=== PATIENT | female | born 1925 | race Caucasian/White ===

== ENCOUNTER 2016-03-08 18:44 | Emergency (ER) | payer MEDICARE ==
[~2016-03-08] VITALS: Ht 154.9 cm; Wt 47.3 kg
[~2016-03-08 18:44] MED LIST: ANTI-GAS ULTRA180 MG PO; ASPIRIN E.C. 8181 MG PO; CALTRATE 600 +1 TAB PO; HYZAAR 25 MG-101 TAB PO; IMODIUM 2MG CAPS2 MG PO; LORTAB 5/500 501 TAB; MEGA RED; MELAT3MGTAB PO; MELATONIN; NEURONTIN300 MG/CAP PO; NORCO 325 MG-51 TAB PO; NORMODYNE100 MG PO; NORVASC 10MG10 MG PO; OMEGA 31000 MG PO; OXYCONTIN 10MG10 MG PO; PERCOCET 325 MG1 TA2 PO; RESTORIL 1515 MG/CAP PEG; RESTORIL 1515 MG/CAP PO; SLEEPING PILL; TRANDATE 100MG100 MG PO; VALIUM 5MG T5 MG/TAB PO; [UNRECOGNIZED DRUG - OTHER]; [UNRECOGNIZED DRUG - OTHER] PO
[2016-03-08 18:49] VITALS: TEMP 97.5
[2016-03-08] MEDS ORDERED: CEPHALEXIN500 M1 PO (20:35)
[2016-03-08 21:12] VITALS: BP 180/88; PULSE 84
== END 2016-03-08 21:12 | disposition home or self-care (01) ==
LOC: COL.ER 18:44
DX: S81.812A Laceration without foreign body, left lower leg, initial encounter (principal); Z23 Encounter for immunization; W22.03XA Walked into furniture, initial encounter; Y92.009 Unspecified place in unspecified non-institutional (private) residence as the place of occurrence of the external cause; I10 Essential (primary) hypertension

== ENCOUNTER 2016-03-26 18:51 | Emergency (ER) | payer MEDICARE ==
[~2016-03-26] VITALS: Ht 152.4 cm; Wt 47.3 kg
[~2016-03-26 18:51] MED LIST changes: +CEPHALEXIN500 M1 PO
[2016-03-26 19:03] VITALS: TEMP 98
[2016-03-26] MEDS ORDERED: LIDODERM 5% PATC1 EA TP (21:49)
[2016-03-26] MEDS ORDERED: VALTREX1 GM PO (21:57)
[2016-03-26 23:29] LABS: BASO # 0.1 (0.0-0.2); EOS # 0.5 (0.0-0.7); EOS % 5.4 % (0-4.0); GRAN # 4.1 (1.4-6.5); HEMATOCRIT 37.9 % (37.0-47.0); HEMOGLOBIN 12.7 g/dl (12.5-16.0); LYMPH # 2.8 (1.2-3.4); LYMPH % 34.1 % (20.0-51.0); MEAN CELL VOLUME 93 fl (80.0-100.0); MEAN CORPUSCULAR HEMOGLOBIN 31 pg (27.0-31.0); MEAN CORPUSCULAR HGB CONC 34 g/dl (33.0-37.0); MEAN PLATELET VOLUME 10.8 fl (7.4-10.4); MONO # 0.9 (0.1-0.6); MONO % 10.4 % (1.7-9.3); PLATELET COUNT 179 K/mm3 (130-400); RED BLOOD COUNT 4.08 M/mm3 (4.10-5.30); REDCELL DISTRIBUTION WIDTH-CV 12.9 % (11.5-14.5); WHITE BLOOD COUNT 8.3 K/mm3 (4.8-10.8)
[2016-03-26 23:39] LABS: ADJUSTED CALCIUM 9.5 mg/dL (8.4-10.2); ALANINE AMINOTRANSFERASE 39 U/L (9-52); ALBUMIN 4.2 gm/dL (3.5-5.0); ALKALINE PHOSPHATASE 62 U/L (50-136); ANION GAP 11 mmol/L (7-16); BILIRUBIN,TOTAL 0.7 mg/dL (0.0-1.0); BLOOD UREA NITROGEN 29 mg/dL (7-17); CALCIUM 9.7 mg/dL (8.4-10.2); CARBON DIOXIDE 31 mmol/L (22-30); CHLORIDE 100 mmol/L (98-107); CREATININE, serum 0.92 mg/dL (0.52-1.25); GLUCOSE 106 mg/dL (74-106); LIPASE 179 U/L (23-300); POTASSIUM 4.3 mmol/L (3.4-5.0); SODIUM 142 mmol/L (137-145); TOTAL PROTEIN 7.1 gm/dL (6.4-8.2)
[2016-03-26 23:51] LABS: B-TYPE NATRIURETIC PEPTIDE 1300 pg/mL (0-450)
[2016-03-26 23:58] LABS: TROPONIN-I < 0.012 ng/mL (0.000-0.034)
[2016-03-27 02:12] VITALS: BP 162/62; PULSE 66
== END 2016-03-27 02:14 | disposition home or self-care (01) ==
LOC: COL.ER 18:51
PROVIDERS: Emergency Medicine
DX: R07.89 Other chest pain (principal); I10 Essential (primary) hypertension; I44.7 Left bundle-branch block, unspecified
CPT/HCPCS: J2270; J2405; Q9967

== ENCOUNTER 2016-03-30 23:18 | Emergency (ER) | payer MEDICARE ==
[~2016-03-30] VITALS: Ht 152.4 cm; Wt 48.2 kg
[~2016-03-30 23:18] MED LIST changes: +LIDODERM 5% PATC1 EA TP; +VALTREX1 GM PO
[2016-03-30 23:21] VITALS: BP 182/76; PULSE 68; TEMP 98
== END 2016-03-31 00:19 | disposition home or self-care (01) ==
LOC: COL.ER 23:18
DX: S61.213A Laceration without foreign body of left middle finger without damage to nail, initial encounter (principal); W29.1XXA Contact with electric knife, initial encounter; Y93.G1 Activity, food preparation and clean up; Y92.000 Kitchen of unspecified non-institutional (private) residence as the place of occurrence of the external cause

== ENCOUNTER 2016-07-03 17:56 | Emergency (ER) | payer MEDICARE ==
[~2016-07-03] VITALS: Ht 152.4 cm; Wt 47.3 kg
[2016-07-03 18:28] VITALS: TEMP 98
[2016-07-03] MEDS ORDERED: NORCO 325 MG-51 TAB PO (21:15)
[2016-07-03 21:31] VITALS: BP 138/68; PULSE 62
== END 2016-07-03 21:25 | disposition home or self-care (01) ==
LOC: COL.ER 17:56
DX: S20.211A Contusion of right front wall of thorax, initial encounter (principal); I10 Essential (primary) hypertension; W01.198A Fall on same level from slipping, tripping and stumbling with subsequent striking against other object, initial encounter; Y92.002 Bathroom of unspecified non-institutional (private) residence as the place of occurrence of the external cause

== ENCOUNTER 2017-04-30 11:25 | Emergency (ER) | payer MEDICARE ==
[~2017-04-30] VITALS: Ht 152.4 cm; Wt 45.5 kg
[~2017-04-30 11:25] MED LIST changes: -OMEGA 31000 MG PO; +OMEGA-3 1000 MG1 CAP PO
[2017-04-30 11:34] VITALS: TEMP 96.8
[2017-04-30 12:12] LABS: BASO # 0.1 (0.0-0.2); BASO % 0.8 % (0.0-2.0); EOS # 0.1 (0.0-0.7); EOS % 1.2 % (0-4.0); GRAN # 5.8 (1.4-6.5); GRAN % 68.2 % (42.2-75.2); HEMATOCRIT 41.6 % (37.0-47.0); HEMOGLOBIN 13.8 g/dl (12.5-16.0); LYMPH # 1.8 (1.2-3.4); LYMPH % 20.9 % (20.0-51.0); MEAN CELL VOLUME 94 fl (80.0-100.0); MEAN CORPUSCULAR HEMOGLOBIN 31 pg (27.0-31.0); MEAN CORPUSCULAR HGB CONC 33 g/dl (33.0-37.0); MONO # 0.7 (0.1-0.6); MONO % 8.7 % (1.7-9.3); PLATELET COUNT 158 K/mm3 (130-400); RED BLOOD COUNT 4.44 M/mm3 (4.10-5.30); REDCELL DISTRIBUTION WIDTH-CV 13.1 % (11.5-14.5)
[2017-04-30 12:25] LABS: ALBUMIN 4.7 gm/dL (3.5-5.0); BILIRUBIN,TOTAL 0.4 mg/dL (0.0-1.0); CALCIUM 9.6 mg/dL (8.4-10.2); CREATININE, serum 0.83 mg/dL (0.52-1.25); POTASSIUM 4.2 mmol/L (3.4-5.0); TOTAL PROTEIN 7.6 gm/dL (6.4-8.2)
[2017-04-30] MEDS ORDERED: AMBIEN 5MG TABLE5 MG PO (12:53)
[2017-04-30] MEDS ORDERED: LOPRESSOR 550 MG/TAB PO (12:54)
[2017-04-30] MEDS ORDERED: CATAPRES 0.1MG0.1 MG PO (12:54)
[2017-04-30 13:12] LABS: COLLECTION METHOD CLEAN CATCH
[2017-04-30 13:24] LABS: MUCOUS Present /lpf; PH 7 (5-8); SQUAMOUS EPITHELIAL None Seen /hpf; URINE APPEARANCE Clear; URINE BACTERIA Rare /hpf; URINE BILIRUBIN Negative (NEGATIVE); URINE BLOOD Negative (NEGATIVE); URINE COLOR Yellow; URINE GLUCOSE Negative (NEGATIVE); URINE KETONE Negative (NEGATIVE); URINE LEUKOCYTE ESTERASE Negative (NEGATIVE); URINE NITRATE Negative (NEGATIVE); URINE PROTEIN(semi-quant) 1+ (NEGATIVE); URINE RBC 0-2 /hpf; URINE UROBILINOGEN Negative (NEGATIVE)
[2017-04-30] MEDS ORDERED: NORCO 325 MG-51 TAB PO (13:53)
[2017-04-30 14:47] VITALS: BP 176/75; PULSE 58
== END 2017-04-30 14:43 | disposition home or self-care (01) ==
LOC: COL.ER 11:25
PROVIDERS: Nurse Practitioner
DX: S20.212A Contusion of left front wall of thorax, initial encounter (principal); I10 Essential (primary) hypertension; E78.5 Hyperlipidemia, unspecified; Z79.82 Long term (current) use of aspirin; W01.198A Fall on same level from slipping, tripping and stumbling with subsequent striking against other object, initial encounter; Y92.002 Bathroom of unspecified non-institutional (private) residence as the place of occurrence of the external cause
CPT/HCPCS: A9284

== ENCOUNTER 2017-05-31 21:31 | Emergency (ER) | payer MEDICARE ==
[~2017-05-31] VITALS: Ht 152.4 cm; Wt 45.5 kg
[~2017-05-31 21:31] MED LIST changes: +AMBIEN 5MG TABLE5 MG PO; +CATAPRES 0.1MG0.1 MG PO; +LOPRESSOR 550 MG/TAB PO
[2017-05-31 21:34] VITALS: BP 195/78
[2017-06-01 00:15] VITALS: PULSE 79
== END 2017-05-31 23:41 | disposition home or self-care (01) ==
LOC: COL.ER 21:31
DX: S29.9XXA Unspecified injury of thorax, initial encounter (principal); X50.0XXA Overexertion from strenuous movement or load, initial encounter
CPT/HCPCS: J1885; J7030